=== PATIENT | female | born 1970 | race African-American/Black ===

== ENCOUNTER 2016-11-23 08:24 | Emergency (ER) | payer OTHER ==
[~2016-11-23] VITALS: Ht 160 cm; Wt 157.4 kg
[~2016-11-23 08:24] MED LIST: ALBU0.63 NEB; ALBU6.7H INH; CLAR10TA7 PO; CLIN1CAP6 PO; FLOV110A INH; LISI10TA PO; MONT10TA2 PO; NAPR500 PO
[2016-11-23 08:31] VITALS: BP 145/86; PULSE 77; RESP 18; TEMP 97.5; O2SAT 97
--- NOTE | 2016-11-23 08:52 | PD ---
HPI Chief Complaint: Complaint Time Seen by Provider: 08:45 Travel History International Travel<30 days: No Contact w/Intl Traveler<30days: No Traveled to known affect area: No History of Present Illness HPI This is a 46-year-old female who presents to the emergency department with lower abdominal discomfort, dysuria, hematuria, urgency and frequency for one week, constant, moderate severity. She denies any fevers, chills, nausea or vomiting. She says she usually takes cranberry pills every day but for 3 months she hasn't been taking them and often when she's not on cranberry pill she develops UTI. She denies any vaginal discharge. [facility] Past Medical History Narrative Medical Hypertension Asthma Asthma: Yes Cardiovascular Problems: Yes (htn on meds) Diminished Hearing: No Hypertension: Yes Respiratory: Yes (asthma) Immunizations Current: Yes ?: Not : 4 Para: 2 Miscarriage: 2 Tubal Ligation: Yes Past Surgical History Section: Yes (x2) Hysterectomy: Yes Social History Alcohol Use: Yes (occas. wine) Tobacco Use: No Substance Use: No Allergies-Medications (Allergen,Severity, Reaction): Coded Allergies: No Known Allergies (Verified , 11/23/16) Reported Meds & Prescriptions Reported Meds & Active Scripts Active Reported Singulair (Montelukast Sodium) 10 Mg Tab 10 Mg PO HS Lisinopril-Hctz 10-12.5 Mg Tab 1 Tab PO DAILY Review of Systems Except as stated in HPI: all other systems reviewed are Neg Physical Exam Narrative GENERAL:Well appearing, no acute distress, morbidly obese. SKIN: Focused skin assessment warm and dry. HEAD: Atraumatic. Normocephalic. EYES: Pupils equal and round. No injection or drainage. ENT: Moist mucous membranes NECK: Trachea midline. CARDIOVASCULAR: Regular rate and rhythm. No murmur appreciated. RESPIRATORY: Clear to auscultation. Breath sounds equal bilaterally. GASTROINTESTINAL: Abdomen soft, mildly tender to palpation in the suprapubic region with no rebound or guarding. MUSCULOSKELETAL: No obvious deformities. NEUROLOGICAL: Awake and alert. No obvious cranial nerve deficits. Moving all extremities. PSYCHIATRIC: Appropriate mood and affect; insight and judgment normal. Data Data Last Documented VS Vital Signs Date Time Temp Pulse Resp B/P Pulse Ox O2 Delivery O2 Flow Rate FiO2 11/23/16 08:31 97.5 77 18 145/86 97 Orders Urinalysis - C+S If Indicated (11/23/16 08:50) Labs Laboratory Tests Test 11/23/16 08:50 Urine Collection Type CLEAN CATCH Urine Color YELLOW Urine Turbidity CLEAR Urine pH 5.5 Urine Specific [place] 1.015 Urine Protein NEG mg/dL Urine Glucose (UA) NEG mg/dL Urine Ketones NEG mg/dL Urine Occult Blood MOD Urine Nitrite NEG Urine Bilirubin NEG Urine Leukocyte Esterase NEG Urine WBC 3-5 /hpf Urine Squamous Epithelial 0-5 /hpf Cells Urine Mucus RARE /lpf Microscopic Urinalysis Comment CULT NOT INDICATED MDM Medical Decision Making Medical Screen Exam Complete: Yes Emergency Medical Condition: Yes Medical Record Reviewed: Yes (kidney function in March was normal) Interpretation(s) Afebrile, mild hypertension Urinalysis: Moderate occult blood with no white blood cells Differential Diagnosis Cystitis, pyelonephritis, nephrolithiasis, musculoskeletal back pain Narrative Course This is a 46-year-old female who presents to the emergency department with some dysuria, urgency and hesitancy as well as some back pain. She is coming in with complaints like this in the past and her urinalysis is not very revealing. I think given her urinary symptoms it's reasonable to empirically treat her with antibiotics however I recommended that she follow up with her primary care physician in regards to the recurrence of these symptoms. She may have some musculoskeletal back pain in the setting of her morbid obesity which I discussed with her. Otherwise she is nontoxic appearing and I'll think she requires any labs or further diagnostics in the emergency department. Patient will be discharged home. Diagnosis Primary Impression: Dysuria Additional Impression: Back pain Qualified Code: M54.6 - Thoracic back pain, unspecified back pain laterality, unspecified chronicity Patient Instructions: General Instructions Additional Instructions: If you develop fever, persistent vomiting, back pain, or inability to eat return to the emergency department as your urine infection may have progressed to a kidney infection. Complete your antibiotics as prescribed. Stay well hydrated with Gatorade or water. Followup with your primary care physician in 2-3 days if your symptoms have not resolved. Med/Other Pt SpecificInfo: Prescription(s) given Scripts Naproxen 500 Mg [id number] Mg PO BID PRN (PAIN SCALE 4 TO 10) #20 TAB Prov:Yvette Mchugh MD 11/23/16 Sulfamethoxazole-Trimethoprim (Bactrim DS)800-160 Mg Tab1 Tab PO BID #6 TAB Prov:Yvette Mchugh MD 11/23/16 Disposition: 01 DISCHARGE HOME Condition: Stable Yvette Mchugh MD Nov 23, 2016 08:52
[2016-11-23] MEDS ORDERED: LISI10TA PO (08:57)
[2016-11-23] MEDS ORDERED: MONT10TA2 PO (08:57)
[2016-11-23 09:15] LABS: GLUCOSE,URINE NEG (NEG); KETONE, URINE NEG (NEG); NITRITE,URINE NEG (NEG); PH, URINE 5.5 (5.0-8.5)
[2016-11-23 09:21] LABS: BLOOD, URINE MOD (NEG)
[2016-11-23 09:35] LABS: METHOD OF COLLECTION CLEAN CATCH
[2016-11-23 09:36] LABS: MUCUS URINE RARE /lpf (OCC); SQUAMOUS EPITHELIAL CELL URINE 0-5 /hpf (0-5); URINE COLOR YELLOW (YELLW/STRAW)
[2016-11-23 09:37] LABS: COMMENT (UR) CULT NOT INDICATED; CULTURE IF INDICATED CULT NOT INDICATED
[2016-11-23] MEDS ORDERED: NAPR500T PO (09:48)
[2016-11-23] MEDS ORDERED: BACT800T5 PO (09:48)
== END 2016-11-23 10:14 | disposition home or self-care (01) ==
LOC: PHED 08:24
DX: R30.0 Dysuria (principal); M54.6 Pain in thoracic spine; I10 Essential (primary) hypertension; J45.909 Unspecified asthma, uncomplicated; R82.90 Unspecified abnormal findings in urine
CPT/HCPCS: 81001; 99284

== ENCOUNTER 2017-04-11 15:38 | Emergency (ER) | payer OTHER ==
[~2017-04-11] VITALS: Ht 157.5 cm; Wt 152.0 kg
[~2017-04-11 15:38] MED LIST changes: -ALBU0.63 NEB; -ALBU6.7H INH; +BACT800T5 PO; -CLAR10TA7 PO; -CLIN1CAP6 PO; -FLOV110A INH; -NAPR500 PO; +NAPR500T PO
[2017-04-11 15:43] VITALS: BP 148/83; PULSE 78; RESP 16; TEMP 98.3; O2SAT 98
[2017-04-11] MEDS ORDERED: AMLO5 PO (16:00)
[2017-04-11] MEDS ORDERED: FLUT1INH5 INH (16:00)
--- NOTE | 2017-04-11 16:24 | PD ---
HPI Chief Complaint: Pain: Acute or Chronic Time Seen by Provider: 16:20 Travel History International Travel<30 days: No Contact w/Intl Traveler<30days: No Traveled to known affect area: No History of Present Illness HPI The patient was seen and examined in the presence of the nurse. This patient complains of pain in her right leg. It runs the entire length from knee to proximal foot. She is concerned about a blood clot. She has no injury. Duration 2 weeks. Severity is moderate. Pain is constant. She has noticed no swelling or redness or warmth compared to the other side. No fever. No history of DVT. No alleviating factors. No exacerbating factors. PFSH Past Medical History Hx Anticoagulant Therapy: No Asthma: Yes Cardiovascular Problems: Yes (HTN) Diabetes: No Diminished Hearing: No Hypertension: Yes Respiratory: Yes (ASTHMA) Immunizations Current: Yes Tetanus Vaccination: Unknown Influenza Vaccination: No ?: Not : 4 Para: 2 Miscarriage: 2 Tubal Ligation: Yes Past Surgical History Appendectomy: Yes Section: Yes (x2) Hysterectomy: Yes Social History Alcohol Use: Yes (occas. wine) Tobacco Use: No Substance Use: No Allergies-Medications (Allergen,Severity, Reaction): Coded Allergies: cephalexin (Verified Allergy, Severe, 04/11/17) Reported Meds & Prescriptions Reported Meds & Active Scripts Active Reported Norvasc (Amlodipine Besylate) 5 Mg Tab 5 Mg PO DAILY Arnuity Ellipta (Fluticasone Furoate (Inhalatio) Unknown Strength Inh Unknown Dose INH DAILY Singulair (Montelukast Sodium) 10 Mg Tab 10 Mg PO DAILY Lisinopril-Hctz 10-12.5 Mg Tab 1 Tab PO DAILY Review of Systems General / Constitutional: No: Fever Eyes: No: Visual changes HENT: No: Headaches Cardiovascular: No: Chest Pain or Discomfort Respiratory: No: Shortness of Breath Gastrointestinal: No: Abdominal Pain Genitourinary: No: Dysuria Musculoskeletal: Positive: Pain Skin: No Rash Neurologic: No: Weakness Psychiatric: No: Depression Endocrine: No: Polydipsia Hematologic/Lymphatic: No: Easy Bruising Physical Exam Narrative GENERAL: Well-nourished, well-developed patient in no apparent distress. SKIN: Focused skin assessment reveals no rash and nodules. Skin is Warm and dry. HEAD: Atraumatic. Normocephalic. EYES: Pupils equal and round. No scleral icterus. No injection or drainage. ENT: No nasal bleeding or discharge. Mucous membranes pink and moist. NECK: Trachea midline. No JVD. CARDIOVASCULAR: Regular rate and rhythm. No murmur appreciated. RESPIRATORY: No accessory muscle use. Clear to auscultation. Breath sounds equal bilaterally. GASTROINTESTINAL: Abdomen soft, non-tender, nondistended. Hepatic and splenic margins not palpable. MUSCULOSKELETAL: No obvious deformities. No clubbing. No cyanosis. No edema. No bony tenderness. No deformity of the leg. No redness warmth or swelling compared to the other side. Good range of motion of joints NEUROLOGICAL: Awake and alert. No obvious cranial nerve deficits. Motor grossly within normal limits. Normal speech. PSYCHIATRIC: Appropriate mood and affect; insight and judgment normal. Data Data Last Documented VS Vital Signs Date Time Temp Pulse Resp B/P (MAP) Pulse Ox O2 Delivery O2 Flow Rate FiO2 04/11/17 16:02 16 04/11/17 15:43 98.3 78 148/83 (104) 98 Orders Orders Complete Blood Count With Diff (04/11/17 16:20) Prothrombin Time / Inr (Pt) (04/11/17 16:20) Act Partial Throm Time (Ptt) (04/11/17 16:20) D-Dimer (04/11/17 16:20) Labs Laboratory Tests Test 04/11/17 16:25 White Blood Count 6.8 TH/MM3 Red Blood Count 4.26 MIL/MM3 Hemoglobin 12.8 GM/DL Hematocrit 38.2 % Mean Corpuscular Volume 89.6 FL Mean Corpuscular Hemoglobin 30.1 PG Mean Corpuscular Hemoglobin Concent 33.6 % Red Cell Distribution Width 13.3 % Platelet Count 217 TH/MM3 Mean Platelet Volume 9.2 FL Neutrophils (%) (Auto) 55.7 % Lymphocytes (%) (Auto) 30.9 % Monocytes (%) (Auto) 7.0 % Eosinophils (%) (Auto) 6.0 % Basophils (%) (Auto) 0.4 % Neutrophils # (Auto) 3.8 TH/MM3 Lymphocytes # (Auto) 2.1 TH/MM3 Monocytes # (Auto) 0.5 TH/MM3 Eosinophils # (Auto) 0.4 TH/MM3 Basophils # (Auto) 0.0 TH/MM3 CBC Comment DIFF FINAL Differential Comment Prothrombin Time 10.7 SEC Prothromb Time International Ratio 1.0 RATIO Activated Partial Thromboplast Time 29.3 SEC D-Dimer Quantitative (PE/DVT) 0.27 MG/L FEU [facility] Medical Decision Making Medical Screen Exam Complete: Yes Emergency Medical Condition: Yes Medical Record Reviewed: Yes Differential Diagnosis DVT, myalgia, soft tissue injury Narrative Course I have reviewed the patient's electronic medical record. Patient was seen here a year ago for cellulitis of the leg but has no findings consistent with that Etiology of her right leg pain is unclear from history and physical. She is concerned about ruling out blood clot. CBC is normal Coagulation studies are normal D-dimer is 0.27, which serves to rule out DVT in this low risk patient Diagnosis Primary Impression: Pain in right lower leg Additional Instructions: The patient was advised to follow up with their physician and return if they worsen. Med/Other Pt SpecificInfo: Other Disposition: 01 DISCHARGE HOME Condition: Stable Juan M Bell MD Apr 11, 2017 16:24
[2017-04-11 16:32] LABS: AUTOMATED NEUTROPHIL # 3.8 TH/MM3 (1.8-7.7); BASOPHIL % 0.4 % (0.0-2.0); EOSINOPHIL # 0.4 TH/MM3 (0-0.4); HEMATOCRIT 38.2 % (35.0-46.0); HEMOGLOBIN 12.8 GM/DL (11.6-15.3); LYMPH % 30.9 % (9.0-44.0); LYMPHOCYTE # 2.1 TH/MM3 (1.0-4.8); MEAN CELL VOLUME 89.6 FL (80.0-100.0); MEAN CORPUSCULAR HEMOGLOBIN 30.1 PG (27.0-34.0); MEAN CORPUSCULAR HGB CONC 33.6 % (32.0-36.0); MEAN PLATELET VOLUME 9.2 FL (7.0-11.0); MONOCYTE # 0.5 TH/MM3 (0-0.9); NEUT % 55.7 % (16.0-70.0); PLATELET COUNT 217 TH/MM3 (150-450); RED BLOOD COUNT 4.26 MIL/MM3 (4.00-5.30); RED CELL DISTRIBUTION WIDTH 13.3 % (11.6-17.2); WHITE BLOOD COUNT 6.8 TH/MM3 (4.0-11.0)
[2017-04-11 16:50] LABS: PROTHROMBIN TIME - PATIENT 10.7 SEC (9.8-11.6)
[2017-04-11 16:52] LABS: D-DIMER 0.27 MG/L FEU (0.00-0.50)
[2017-04-11 17:35] VITALS: BP 137/77
== END 2017-04-11 17:35 | disposition home or self-care (01) ==
LOC: PHED 15:38
DX: M79.661 Pain in right lower leg (principal); I10 Essential (primary) hypertension; Z87.09 Personal history of other diseases of the respiratory system; Z86.79 Personal history of other diseases of the circulatory system
CPT/HCPCS: 85025; 85379; 85610; 85730; 99283